=== PATIENT | male | born 2000 | race Caucasian/White ===

== ENCOUNTER 2022-09-06 08:53 | Emergency (ER) | payer OTHER ==
[~2022-09-06] VITALS: Ht 175.3 cm; Wt 105.2 kg
[2022-09-06 09:06] VITALS: BP 135/97
--- NOTE | 2022-09-06 09:22 | NUR ---
X-Ray at bedside.
[2022-09-06] MEDS ORDERED: KETOROLAC 30 MG/ML VIAL IM ONE (10:30)
[2022-09-06] MEDS ORDERED: IBUP-2213 PO (11:18)
[2022-09-06 11:35] VITALS: BP 135/97
--- NOTE | 2022-09-06 11:37 | NUR ---
1130 PT DRESSED W/ FIBERGLASS LONG ARM SPLINT THEN WRAPPED W/ RASTA WRAP X2. +CMS. PT ALSO PLACED IN SHOULDER IMMOBILIZER SLING.
== END 2022-09-06 11:35 | disposition home or self-care (01) ==
LOC: MED 08:53
DX: S53.492A Other sprain of left elbow, initial encounter (principal); V86.96XA Unspecified occupant of dirt bike or motor/cross bike injured in nontraffic accident, initial encounter; Y93.89 Activity, other specified; Y92.89 Other specified places as the place of occurrence of the external cause; Y99.8 Other external cause status
CPT/HCPCS: 29105; 73060; 73080; 73090; 73110; 96372; 99284; J1885; Q0092

== ENCOUNTER 2022-10-05 10:33 | Emergency (ER) | payer OTHER ==
[~2022-10-05] VITALS: Ht 172.7 cm; Wt 72.6 kg
[~2022-10-05 10:33] MED LIST: IBUP-2213 PO
[2022-10-05 10:57] VITALS: BP 140/86
--- NOTE | 2022-10-05 12:00 | NUR ---
PT SAYS WILL LEAVE, ASKED FOR RASTA WRAPS AND PROVIDED, STAFF TOLD HIM ITS AVAILABLE IN PHARMACY STORES
--- NOTE | 2022-10-05 12:05 | NUR ---
CALLED PT. IN LOBBY, NO ANSWER. PT. NOT FOUND IN BATHROOMS, OUTSIDE OF ER.
--- NOTE | 2022-10-05 12:41 | NUR ---
CALLED PT. IN LOBBY, NO ANSWER. PT. NOT FOUND IN BATHROOMS, OUTSIDE OF ER.
--- NOTE | 2022-10-05 12:44 | NUR ---
PATIENT LEFT WITHOUT BEING SEEN BY DR. GARSIA. NO FURTHER CARE PROVIDED FOR PATIENT.
== END 2022-10-05 12:44 | disposition left against medical advice (07) ==
LOC: MED 10:33
DX: M25.522 Pain in left elbow (principal); Z53.21 Procedure and treatment not carried out due to patient leaving prior to being seen by health care provider
CPT/HCPCS: 99281

== ENCOUNTER 2023-01-25 12:54 | Emergency (ER) | payer OTHER ==
[~2023-01-25] VITALS: Ht 175.3 cm; Wt 99.8 kg
[2023-01-25 13:16] VITALS: BP 148/90; PULSE 106; RESP 19; TEMP 97.9; O2SAT 97
[2023-01-25 13:57] LABS: FLU A ANTIGEN negative (NEGATIVE); FLU B ANTIGEN NEGATIVE (NEGATIVE)
[2023-01-25 14:35] VITALS: BP 135/88; PULSE 88; RESP 19; TEMP 97.9; O2SAT 99
== END 2023-01-25 14:35 | disposition home or self-care (01) ==
LOC: MED 12:54
DX: U07.1 COVID-19 (principal); Z79.899 Other long term (current) drug therapy
CPT/HCPCS: 99283